=== PATIENT | male | born 1935 | race Caucasian/White ===

== ENCOUNTER 2019-01-20 18:24 | Inpatient (IN) | payer OTHER, MEDICARE | END 2019-02-06 21:20 | disposition home health service (06) | LOC: DOU 23:02 → TELE-WESTW 01-30 11:55 → OVERFLOW 01-21 16:15 → DOU IN ICU 01-22 19:44 → ER 18:24 | PROC: B2111ZZ Fluoroscopy of Multiple Coronary Arteries using Low Osmolar Contrast (ICD-10-PCS; principal; ~2019-01-20) | PROC: B2151ZZ Fluoroscopy of Left Heart using Low Osmolar Contrast (ICD-10-PCS; ~2019-01-20) | PROC: 02H63JZ Insertion of Pacemaker Lead into Right Atrium, Percutaneous Approach (ICD-10-PCS; ~2019-01-20) | PROC: 0JH606Z Insertion of Pacemaker, Dual Chamber into Chest Subcutaneous Tissue and Fascia, Open Approach (ICD-10-PCS; ~2019-01-20) | DX: A41.9 Sepsis, unspecified organism (principal); J96.00 Acute respiratory failure, unspecified whether with hypoxia or hypercapnia; N17.0 Acute kidney failure with tubular necrosis; J18.9 Pneumonia, unspecified organism; I50.41 Acute combined systolic (congestive) and diastolic (congestive) heart failure; J18.1 Lobar pneumonia, unspecified organism; J44.0 Chronic obstructive pulmonary disease with (acute) lower respiratory infection; I13.0 Hypertensive heart and chronic kidney disease with heart failure and stage 1 through stage 4 chronic kidney disease, or unspecified chronic kidney disease; E44.0 Moderate protein-calorie malnutrition; I12.9 Hypertensive chronic kidney disease with stage 1 through stage 4 chronic kidney disease, or unspecified chronic kidney disease; R00.1 Bradycardia, unspecified; N18.3 Chronic kidney disease, stage 3 (moderate); R79.1 Abnormal coagulation profile; E66.01 Morbid (severe) obesity due to excess calories; Z68.32 Body mass index [BMI] 32.0-32.9, adult; E11.22 Type 2 diabetes mellitus with diabetic chronic kidney disease; E11.65 Type 2 diabetes mellitus with hyperglycemia; E66.9 Obesity, unspecified; E78.5 Hyperlipidemia, unspecified; E83.119 Hemochromatosis, unspecified; E87.6 Hypokalemia; F12.90 Cannabis use, unspecified, uncomplicated; I25.10 Atherosclerotic heart disease of native coronary artery without angina pectoris; I48.91 Unspecified atrial fibrillation; K40.90 Unilateral inguinal hernia, without obstruction or gangrene, not specified as recurrent; K57.90 Diverticulosis of intestine, part unspecified, without perforation or abscess without bleeding; N40.0 Benign prostatic hyperplasia without lower urinary tract symptoms; N28.1 Cyst of kidney, acquired ==

== ENCOUNTER 2019-07-21 07:30 | Emergency (ER) | payer OTHER ==
[~2019-07-21] VITALS: Ht 177.8 cm; Wt 113.4 kg
[~2019-07-21 07:30] MED LIST: AMIO200T33; ATOR40TA52; FIN5T; TAMS1CAP25
[2019-07-21 08:30] LABS: Hemoglobin 17.1 g/dL (13.5-17.5); Mean Corpuscular Hemoglobin 34.1 pg (28.0-32.0); Red Blood Cells 5.02 10^6/uL (4.5-5.90)
[2019-07-21 08:32] LABS: Hematocrit 49.3 % (41.0-53.0); Mean Corpuscular Hgb Conc. 34.7 g/dL (32.0-36.0); Mean Corpuscular Volume 98.2 fL (80.0-100.0); Platelet Count (auto) 199 10^3/uL (140-450); Red Cell Distribution Width 14.8 % (11.8-14.3); White Blood Cell 15.6 10^3/uL (4.4-10.8)
[2019-07-21 08:37] LABS: Albumin 3.2 g/dL (3.4-5.0); BUN/Creatinine Ratio 14.1; Calcium 8.6 mg/dL (8.5-10.1); Potassium 3.8 mmol/L (3.5-5.1)
[2019-07-21 08:42] LABS: Bilirubin, Total 0.5 mg/dL (0.2-1.0); Total Protein 7.7 g/dL (6.4-8.2)
[2019-07-21 08:44] LABS: Basophils % (manual) 0 (0.0-2.0); Blast Cells 0; Metamyelocytes % 0; Myelocytes % 0; Promyelocytes % 0; Reactive Lymphocytes 0
[2019-07-21 09:10] LABS: Band Neutrophils % (manual) 3; Eosinophils % (manual) 4 (0-7); Lymphocytes % (manual) 16 (10.0-50.0); Monocytes % (manual) 4 (0-12)
[2019-07-21] MEDS ORDERED: KETOROLAC TROMETH 30 MG/ML 1ML VIAL IV ONE (09:15)
[2019-07-21 10:27] VITALS: BP 152/83
[2019-07-21] MEDS ORDERED: SPIRONOLACTONE 25 MG TAB PO ONE (10:45)
[2019-07-21] MEDS ORDERED: FUROSEMIDE 20 MG TAB PO ONE (10:45)
== END 2019-07-21 13:25 | disposition home or self-care (01) ==
LOC: EDBD 07:30 → ER 07:30
DX: I13.0 Hypertensive heart and chronic kidney disease with heart failure and stage 1 through stage 4 chronic kidney disease, or unspecified chronic kidney disease (principal); I50.9 Heart failure, unspecified; N18.9 Chronic kidney disease, unspecified; J44.9 Chronic obstructive pulmonary disease, unspecified; E78.5 Hyperlipidemia, unspecified; Z95.0 Presence of cardiac pacemaker
CPT/HCPCS: 36415; 71046; 80053; 83735; 84484; 85007; 85027; 93005; 94761; 96374; 99284; J1885

== ENCOUNTER 2020-05-31 10:00 | Emergency (ER) | payer OTHER ==
[~2020-05-31] VITALS: Ht 180.3 cm; Wt 102.1 kg
[2020-05-31 10:39] LABS: Basophils # (auto) 0 10 ^3/uL (0-0.2); Basophils % (auto) 0.4 % (0.0-2.0); Eosinophils # (auto) 0.3 10 ^3/uL (0-0.8); Eosinophils % (auto) 3.1 % (0.0-7.0); Hematocrit 43.3 % (41.0-53.0); Hemoglobin 14.7 g/dL (13.5-17.5); Lymphocytes # (auto) 1.8 10 ^3/uL (0.4-5.4); Lymphocytes % (auto) 17.7 % (10.0-50.0); Mean Corpuscular Hemoglobin 33.8 pg (28.0-32.0); Mean Corpuscular Volume 99.2 fL (80.0-100.0); Monocytes # (auto) 0.9 10 ^3/uL (0-1.3); Monocytes % (auto) 8.8 % (0.0-12.0); Neutrophils # (auto) 7.3 10 ^3/uL (1.6-8.6); Platelet Count (auto) 250 10^3/uL (140-450); Red Blood Cells 4.37 10^6/uL (4.5-5.90); Red Cell Distribution Width 13.1 % (11.8-14.3); White Blood Cell 10.4 10^3/uL (4.4-10.8)
[2020-05-31 11:01] LABS: Albumin 3.4 g/dL (3.4-5.0); Anion Gap 7 (5-15); Blood Urea Nitrogen 21 mg/dL (7-18); Calcium 8.5 mg/dL (8.5-10.1); Carbon Dioxide 25 mmol/L (21-32); Chloride 107 mmol/L (98-107); Glucose 112 mg/dL (74-106); Potassium 3.5 mmol/L (3.5-5.1); Sodium 139 mmol/L (136-145)
[2020-05-31 11:07] LABS: Alanine Aminotransferase 42 U/L (16-61); Alkaline Phosphatase 94 U/L (45-117); Aspartate Aminotransferase 24 U/L (15-37); BUN/Creatinine Ratio 14.6; Bilirubin, Total 0.5 mg/dL (0.2-1.0); GFR African American 60 mL/min; GFR Non-African American 49 mL/min; Total Protein 7.3 g/dL (6.4-8.2)
[2020-05-31 11:30] VITALS: BP 142/79
== END 2020-05-31 13:08 | disposition home or self-care (01) ==
LOC: ER 10:00
DX: S20.212A Contusion of left front wall of thorax, initial encounter (principal); R42 Dizziness and giddiness; F12.10 Cannabis abuse, uncomplicated; M79.89 Other specified soft tissue disorders; I48.91 Unspecified atrial fibrillation; I11.0 Hypertensive heart disease with heart failure; I50.9 Heart failure, unspecified; E78.5 Hyperlipidemia, unspecified; Z90.89 Acquired absence of other organs; Z95.0 Presence of cardiac pacemaker; W18.30XA Fall on same level, unspecified, initial encounter; Y93.89 Activity, other specified; Y99.8 Other external cause status; Y92.89 Other specified places as the place of occurrence of the external cause
CPT/HCPCS: 36415; 70450; 71046; 80053; 84484; 85025; 93005

== ENCOUNTER 2021-01-15 15:33 | Emergency (ER) | payer OTHER ==
[~2021-01-15] VITALS: Ht 175.3 cm; Wt 108.9 kg
[2021-01-15 15:59] VITALS: BP 142/92
[2021-01-15] MEDS ORDERED: LIDOCAINE 1% HCL (LOCAL ANESTH.) INJ 20ML MDV IJ ONE (17:30)
[2021-01-15] MEDS ORDERED: ACETAMINOPHEN 500 MG TAB PO ONE (18:00)
[2021-01-15] MEDS ORDERED: TETANUS-DIPTH-ACEL PERTUSSIS 0.5ML SYR Tdap IM ONE (18:30)
== END 2021-01-15 23:57 | disposition home or self-care (01) ==
LOC: EDBD 15:33 → ER 15:33
DX: S92.511A Displaced fracture of proximal phalanx of right lesser toe(s), initial encounter for closed fracture (principal); S91.119A Laceration without foreign body of unspecified toe without damage to nail, initial encounter; I11.0 Hypertensive heart disease with heart failure; I50.9 Heart failure, unspecified; J44.9 Chronic obstructive pulmonary disease, unspecified; E78.5 Hyperlipidemia, unspecified; W18.09XA Striking against other object with subsequent fall, initial encounter; Y93.89 Activity, other specified; Y92.89 Other specified places as the place of occurrence of the external cause; Y99.8 Other external cause status
CPT/HCPCS: 12001; 73630; 90471; 90715; 99283; J2001

== ENCOUNTER 2021-05-30 18:35 | Emergency (ER) | payer OTHER ==
[~2021-05-30] VITALS: Ht 177.8 cm; Wt 102.1 kg
[2021-05-30 19:19] LABS: Basophils # (auto) 0 10 ^3/uL (0-0.2); Basophils % (auto) 0.4 % (0.0-2.0); Eosinophils # (auto) 0.4 10 ^3/uL (0-0.8); Hematocrit 43.7 % (41.0-53.0); Hemoglobin 15.2 g/dL (13.5-17.5); Lymphocytes % (auto) 19.1 % (10.0-50.0); Mean Corpuscular Hemoglobin 33.3 pg (28.0-32.0); Mean Corpuscular Hgb Conc. 34.7 g/dL (32.0-36.0); Monocytes # (auto) 0.7 10 ^3/uL (0-1.3); Monocytes % (auto) 6.7 % (0.0-12.0); Neutrophils # (auto) 7.2 10 ^3/uL (1.6-8.6); Neutrophils % (auto) 69.8 % (37.0-80.0); Nucleated Red Blood Cells % 0.1 %; Red Blood Cells 4.55 10^6/uL (4.5-5.90); Red Cell Distribution Width 13.6 % (11.8-14.3); White Blood Cell 10.3 10^3/uL (4.4-10.8)
[2021-05-30 19:38] LABS: Albumin 2.6 g/dL (3.4-5.0); BUN/Creatinine Ratio 15.6; Calcium 8.4 mg/dL (8.5-10.1); Potassium 3.5 mmol/L (3.5-5.1)
[2021-05-30 19:45] LABS: Bilirubin, Total 0.4 mg/dL (0.2-1.0)
[2021-05-31 00:48] VITALS: BP 172/102
== END 2021-05-31 01:26 | disposition home or self-care (01) ==
LOC: ER 18:37
DX: S82.62XA Displaced fracture of lateral malleolus of left fibula, initial encounter for closed fracture (principal); S92.492A Other fracture of left great toe, initial encounter for closed fracture; S92.592A Other fracture of left lesser toe(s), initial encounter for closed fracture; R42 Dizziness and giddiness; I11.0 Hypertensive heart disease with heart failure; I50.9 Heart failure, unspecified; I48.91 Unspecified atrial fibrillation; J44.9 Chronic obstructive pulmonary disease, unspecified; E78.5 Hyperlipidemia, unspecified; Z90.49 Acquired absence of other specified parts of digestive tract; Z95.0 Presence of cardiac pacemaker; Z90.89 Acquired absence of other organs; Z79.899 Other long term (current) drug therapy; W01.0XXA Fall on same level from slipping, tripping and stumbling without subsequent striking against object, initial encounter; Y93.89 Activity, other specified; Y92.89 Other specified places as the place of occurrence of the external cause; Y99.8 Other external cause status
CPT/HCPCS: 29515; 36415; 73610; 73630; 80053; 85025

== ENCOUNTER 2021-08-09 09:57 | Inpatient (IN) | payer OTHER ==
[~2021-08-09] VITALS: Ht 177.8 cm; Wt 100.7 kg
[2021-08-09 15:04] LABS: Albumin 2.5 g/dL (3.4-5.0); Basophils # (auto) 0 10 ^3/uL (0-0.2); Basophils % (auto) 0.2 % (0.0-2.0); Eosinophils # (auto) 0.1 10 ^3/uL (0-0.8); Eosinophils % (auto) 1.4 % (0.0-7.0); Hematocrit 44.7 % (41.0-53.0); Hemoglobin 14.9 g/dL (13.5-17.5); Lymphocytes # (auto) 1.4 10 ^3/uL (0.4-5.4); Lymphocytes % (auto) 13.5 % (10.0-50.0); Mean Corpuscular Hemoglobin 32.7 pg (28.0-32.0); Mean Corpuscular Hgb Conc. 33.4 g/dL (32.0-36.0); Monocytes # (auto) 0.7 10 ^3/uL (0-1.3); Neutrophils # (auto) 7.9 10 ^3/uL (1.6-8.6); Neutrophils % (auto) 77.9 % (37.0-80.0); Nucleated Red Blood Cells % 0.1 %; Potassium 3.8 mmol/L (3.5-5.1); Red Blood Cells 4.56 10^6/uL (4.5-5.90); Red Cell Distribution Width 13.8 % (11.8-14.3); White Blood Cell 10.2 10^3/uL (4.4-10.8)
[2021-08-09 15:11] LABS: BUN/Creatinine Ratio 16.1; Bilirubin, Total 0.8 mg/dL (0.2-1.0); INR 1.25 (0.9-1.15); Partial Thromboplastin Time 30.4 sec (23.6-33.0); Total Protein 6.7 g/dL (6.4-8.2)
[2021-08-09] MEDS ORDERED: LABETALOL HCL 5 MG/ML 4ML SYRINGE IV ONE (16:15)
[2021-08-09 20:38] LABS: Urine Amorphous Crystal FEW /hpf (None Seen); Urine Bacteria FEW /hpf (None Seen); Urine Blood Negative /uL (Negative); Urine Specific Gravity 1.012 (1.001-1.035); Urine WBC <1 /hpf (0 - 3)
[2021-08-09] MEDS ORDERED: MORPHINE SULFATE INJECTION 2 MG/ML SYRG IV PRN (20:45)
[2021-08-09] MEDS ORDERED: ACETAMINOPHEN 500 MG TAB PO PRN (20:45)
[2021-08-09] MEDS ORDERED: DOCUSATE CALCIUM 240 MG CAP PO PRN (20:45)
[2021-08-09] MEDS ORDERED: LORazepam 0.5 MG TAB PO PRN (20:45)
[2021-08-09] MEDS ORDERED: ONDANSETRON HCL 4 MG/2 ML VIAL IV PRN (20:45)
[2021-08-09] MEDS ORDERED: FUROSEMIDE 40 MG/4 ML VIAL IV ONE (20:45)
[2021-08-09] MEDS ORDERED: NITROGLYCERIN 0.4 MG SL TAB SL PRN (20:45)
[2021-08-10] MEDS: LABETALOL HCL 5 MG/ML 4ML SYRINGE IV PRN ×3 (00:53→21:54)
[2021-08-10] MEDS: MORPHINE SULFATE INJECTION 2 MG/ML SYRG IV PRN ×2 (00:56→20:13)
[2021-08-10 06:18] LABS: Basophils # (auto) 0 10 ^3/uL (0-0.2); Basophils % (auto) 0.3 % (0.0-2.0); Eosinophils # (auto) 0.1 10 ^3/uL (0-0.8); Hematocrit 44.8 % (41.0-53.0); Lymphocytes # (auto) 1.1 10 ^3/uL (0.4-5.4); Lymphocytes % (auto) 9.7 % (10.0-50.0); Mean Corpuscular Hgb Conc. 33.5 g/dL (32.0-36.0); Mean Corpuscular Volume 98.6 fL (80.0-100.0); Monocytes # (auto) 0.9 10 ^3/uL (0-1.3); Monocytes % (auto) 8.3 % (0.0-12.0); Neutrophils # (auto) 9.1 10 ^3/uL (1.6-8.6); Neutrophils % (auto) 80.7 % (37.0-80.0); Red Blood Cells 4.54 10^6/uL (4.5-5.90); Red Cell Distribution Width 14.2 % (11.8-14.3); White Blood Cell 11.3 10^3/uL (4.4-10.8)
[2021-08-10 06:33] LABS: Albumin 2.4 g/dL (3.4-5.0); Calcium 8.2 mg/dL (8.5-10.1); Potassium 3.2 mmol/L (3.5-5.1)
[2021-08-10 06:37] LABS: BUN/Creatinine Ratio 14.7; Bilirubin, Total 0.8 mg/dL (0.2-1.0); Total Protein 6.9 g/dL (6.4-8.2)
[2021-08-10] MEDS: AMIODARONE HCL 200 MG TAB PO SCH (10:11)
[2021-08-10] MEDS: cefTRIAXone 1GM/50ML D5W 50 ML IV SCH (10:11)
[2021-08-10] MEDS: PANTOPRAZOLE 40 MG TAB PO SCH (10:11)
[2021-08-10] MEDS: ENOXAPARIN SOD 40 MG/0.4 ML SYRINGE SC SCH (10:12)
[2021-08-10] MEDS ORDERED: POTASSIUM EFFERVESENT TAB 25 MEQ PO ONE (15:15)
[2021-08-10] MEDS ORDERED: DOXY-338 PO (16:23)
[2021-08-10] MEDS ORDERED: POTA-180 PO (16:23)
[2021-08-10] MEDS ORDERED: ALBUAER3 IN (16:23)
[2021-08-10] MEDS ORDERED: FURO1TAB31 PO (16:23)
[2021-08-10] MEDS: FUROSEMIDE 40 MG/4 ML VIAL IV SCH (20:14)
[2021-08-10 21:41] VITALS: BP 158/114
[2021-08-10] MEDS ORDERED: CARV6.2551 PO (22:08)
[2021-08-10] MEDS ORDERED: LISI-275 PO (22:08)
[2021-08-10] MEDS ORDERED: ATOR40TA52 PO (22:08)
[2021-08-10] MEDS ORDERED: APIX5TAB PO (22:08)
[2021-08-10] MEDS ORDERED: AMIO200T4 PO (22:08)
[2021-08-10] MEDS ORDERED: methylPREDNISolone SOD SUCC 125 MG/2 ML VL IV ONE (22:15)
[2021-08-11] VITALS (8 sets, daily range): BP systolic 131–167; BP diastolic 73–107
[2021-08-11] MEDS: CARVEDILOL 3.125 MG TAB PO SCH ×3 (04:07→22:05)
[2021-08-11] MEDS: IPRATROPIUM BROM 0.5 MG/2.5ML INH SOL NEB SCH ×3 (08:49→18:29)
[2021-08-11 08:55] LABS: Basophils # (auto) 0 10 ^3/uL (0-0.2); Basophils % (auto) 0.3 % (0.0-2.0); Eosinophils # (auto) 0 10 ^3/uL (0-0.8); Eosinophils % (auto) 0.1 % (0.0-7.0); Hematocrit 42.4 % (41.0-53.0); Hemoglobin 14.3 g/dL (13.5-17.5); Lymphocytes # (auto) 0.3 10 ^3/uL (0.4-5.4); Lymphocytes % (auto) 2.8 % (10.0-50.0); Mean Corpuscular Hemoglobin 33.4 pg (28.0-32.0); Mean Corpuscular Hgb Conc. 33.6 g/dL (32.0-36.0); Mean Corpuscular Volume 99.3 fL (80.0-100.0); Monocytes # (auto) 0.3 10 ^3/uL (0-1.3); Monocytes % (auto) 2.2 % (0.0-12.0); Neutrophils # (auto) 10.8 10 ^3/uL (1.6-8.6); Neutrophils % (auto) 94.6 % (37.0-80.0); Nucleated Red Blood Cells % 0.1 %; Red Blood Cells 4.27 10^6/uL (4.5-5.90); Red Cell Distribution Width 13.8 % (11.8-14.3); White Blood Cell 11.4 10^3/uL (4.4-10.8)
[2021-08-11 08:59] LABS: Potassium 3.8 mmol/L (3.5-5.1)
[2021-08-11] MEDS: cefTRIAXone 1GM/50ML D5W 50 ML IV SCH (09:00)
[2021-08-11 09:06] LABS: Albumin 2.6 g/dL (3.4-5.0); BUN/Creatinine Ratio 16.4; Bilirubin, Total 0.9 mg/dL (0.2-1.0); Total Protein 6.2 g/dL (6.4-8.2)
[2021-08-11] MEDS: ENOXAPARIN SOD 40 MG/0.4 ML SYRINGE SC SCH (10:00)
[2021-08-11] MEDS: PANTOPRAZOLE 40 MG TAB PO SCH (10:00)
[2021-08-11] MEDS: methylPREDNISolone SOD SUCC 40 MG/ML VL IV SCH ×2 (10:00→22:06)
[2021-08-11] MEDS: AMIODARONE HCL 200 MG TAB PO SCH (10:00)
[2021-08-11] MEDS: FUROSEMIDE 40 MG/4 ML VIAL IV SCH (10:00)
[2021-08-12] MEDS: IPRATROPIUM BROM 0.5 MG/2.5ML INH SOL NEB SCH ×2 (00:48→05:59)
[2021-08-12 05:00] VITALS: BP 152/93
[2021-08-12] MEDS: cefTRIAXone 1GM/50ML D5W 50 ML IV SCH (09:00)
[2021-08-12] MEDS: ENOXAPARIN SOD 40 MG/0.4 ML SYRINGE SC SCH (10:00)
[2021-08-12] MEDS: PANTOPRAZOLE 40 MG TAB PO SCH (10:00)
[2021-08-12] MEDS: AMIODARONE HCL 200 MG TAB PO SCH (10:00)
[2021-08-12] MEDS: FUROSEMIDE 40 MG/4 ML VIAL IV SCH (10:00)
[2021-08-12] MEDS: methylPREDNISolone SOD SUCC 40 MG/ML VL IV SCH (10:00)
[2021-08-12] MEDS: CARVEDILOL 3.125 MG TAB PO SCH (10:00)
== END 2021-08-12 11:45 | disposition home or self-care (01) | DRG 291 ==
LOC: EDBD 09:57 → ER 09:57 → TELE 20:36 → TELE-CENTR 08-10 20:20
PROVIDERS: ADMIT Family Medicine; ATTEND Internal Medicine
DX: I13.0 Hypertensive heart and chronic kidney disease with heart failure and stage 1 through stage 4 chronic kidney disease, or unspecified chronic kidney disease (principal); J18.9 Pneumonia, unspecified organism; I50.33 Acute on chronic diastolic (congestive) heart failure; J96.11 Chronic respiratory failure with hypoxia; I16.0 Hypertensive urgency; E87.6 Hypokalemia; I70.0 Atherosclerosis of aorta; J44.9 Chronic obstructive pulmonary disease, unspecified; I48.0 Paroxysmal atrial fibrillation; Z20.822 Contact with and (suspected) exposure to COVID-19; N18.30 Chronic kidney disease, stage 3 unspecified; E78.5 Hyperlipidemia, unspecified; N40.0 Benign prostatic hyperplasia without lower urinary tract symptoms; Z95.0 Presence of cardiac pacemaker; Z99.81 Dependence on supplemental oxygen; Z90.49 Acquired absence of other specified parts of digestive tract
CPT/HCPCS: 36415; 36600; 71045; 71250; 73030; 80053; 81001; 82805; 83880; 84443; 84484; 85025; 85610; 85730; 87040; 87426; 93005; 93306; 94640; 96372; 96374; 96375; 97163; 99291; G0378; J0696; J3490

== ENCOUNTER 2021-10-07 12:58 | Inpatient (IN) | payer OTHER ==
[~2021-10-07] VITALS: Ht 185.4 cm; Wt 105.0 kg
[~2021-10-07 12:58] MED LIST changes: +ALBUAER3 IN; +AMIO200T4 PO; +APIX5TAB PO; +ATOR40TA52 PO; +CARV6.2551 PO; +DOXY-338 PO; +FURO1TAB31 PO; +LISI-275 PO; +POTA-180 PO
[2021-10-07] MEDS ORDERED: ROCURONIUM 10MG/ML 10ML VIAL IV ONE ×3 (13:20→16:15)
[2021-10-07] MEDS ORDERED: PROPOFOL 100 ML IV ONE (13:25)
[2021-10-07] MEDS ORDERED: ETOMIDATE (2MG/ML) 20ML VIAL IV ONE ×2 (13:26→13:45)
[2021-10-07] MEDS: PROPOFOL 100 ML IV SCH (13:30)
[2021-10-07] MEDS ORDERED: SUCCINYLCHOLINE CHLORIDE 20 MG/ML 10ML VIAL IV ONE (13:45)
[2021-10-07] MEDS ORDERED: SODIUM CHLORIDE 0.9% 3,150 ML IV ONE (14:45)
[2021-10-07 15:20] LABS: Basophils # (auto) 0 10 ^3/uL (0-0.2); Basophils % (auto) 0.3 % (0.0-2.0); Eosinophils # (auto) 0.1 10 ^3/uL (0-0.8); Eosinophils % (auto) 0.9 % (0.0-7.0); Hematocrit 48.2 % (41.0-53.0); Hemoglobin 15.8 g/dL (13.5-17.5); Lymphocytes # (auto) 0.9 10 ^3/uL (0.4-5.4); Lymphocytes % (auto) 5.6 % (10.0-50.0); Mean Corpuscular Hemoglobin 32.2 pg (28.0-32.0); Mean Corpuscular Hgb Conc. 32.8 g/dL (32.0-36.0); Mean Corpuscular Volume 98.2 fL (80.0-100.0); Monocytes # (auto) 0.6 10 ^3/uL (0-1.3); Monocytes % (auto) 3.8 % (0.0-12.0); Neutrophils # (auto) 14.7 10 ^3/uL (1.6-8.6); Neutrophils % (auto) 89.4 % (37.0-80.0); Nucleated Red Blood Cells % 0.1 %; Red Blood Cells 4.91 10^6/uL (4.5-5.90); White Blood Cell 16.4 10^3/uL (4.4-10.8)
[2021-10-07 15:35] LABS: Albumin 2.8 g/dL (3.4-5.0); BUN/Creatinine Ratio 13.5; Magnesium 2.7 mg/dL (1.6-2.6); Potassium 3.7 mmol/L (3.5-5.1)
[2021-10-07 15:37] LABS: Lactic Acid w/Reflex 2.5 mmol/L (0.4-2.0)
[2021-10-07 15:40] LABS: Bilirubin, Total 0.9 mg/dL (0.2-1.0); Total Protein 7.2 g/dL (6.4-8.2)
[2021-10-07 15:41] LABS: CRP High Sensitivity 0.91 mg/dL (< 0.3)
[2021-10-07 15:42] LABS: INR 1.26 (0.9-1.15); Partial Thromboplastin Time 28.6 sec (23.6-33.0)
[2021-10-07] MEDS ORDERED: SODIUM CHLORIDE 0.9% 1,000 ML IV ONE (17:00)
[2021-10-07] MEDS ORDERED: AZITHROMYCIN 500MG/ 250ML 250 ML IV ONE (17:00)
[2021-10-07] MEDS ORDERED: cefTRIAXone 1GM/50ML D5W 50 ML IV ONE (17:00)
[2021-10-07 17:45] VITALS: BP 158/106
[2021-10-07 18:16] VITALS: BP 136/97
[2021-10-07] MEDS: MIDAZOLAM DRIP 50 mg/50mL 50 ML IV SCH (18:29)
[2021-10-07] MEDS ORDERED: NITROGLYCERIN 0.4 MG SL TAB SL PRN (18:45)
[2021-10-07] MEDS ORDERED: MORPHINE SULFATE INJECTION 2 MG/ML SYRG IV PRN (18:45)
[2021-10-07] MEDS ORDERED: OSELTAMIVIR 75 MG CAP PO ONE (19:15)
[2021-10-07] MEDS ORDERED: DEXTROSE (50%) 50ML SYRG IV PRN (19:15)
[2021-10-07] MEDS ORDERED: ALBUTEROL SULF 2.5 MG/0.5ML(0.5%) NEB SOLN NEB PRN (19:15)
[2021-10-07] MEDS ORDERED: NOREPINEPHRINE 8 MG/250ML KIT 250 ML IV ONE (19:28)
[2021-10-07] MEDS: APIXABAN 5 MG TAB NG SCH ×2 (22:00→22:08)
[2021-10-07] MEDS: FUROSEMIDE 40 MG/4 ML VIAL IV SCH (22:08)
[2021-10-07] MEDS: NOREPINEPHRINE 8 MG/250ML KIT 250 ML IV SCH (22:09)
[2021-10-07 22:16] VITALS: BP 161/104
[2021-10-07 23:43] LABS: Urine Bacteria FEW /hpf (None Seen); Urine Blood 3+ /uL (Negative); Urine Hyaline Cast MANY /lpf (0 - 2); Urine WBC 317 /hpf (0 - 3)
[2021-10-08 00:06] LABS: Urine Specific Gravity 1.015 (1.001-1.035)
[2021-10-08 02:34] VITALS: BP 136/89
[2021-10-08] MEDS: InsuLIN REG 1unit/0.01ml Soln (100units/ml) SC SCH ×4 (06:00→18:39)
[2021-10-08] MEDS: ALBUTEROL SULF 2.5 MG/0.5ML(0.5%) NEB SOLN NEB SCH ×4 (06:05→19:14)
[2021-10-08] MEDS: IPRATROPIUM BROM 0.5 MG/2.5ML INH SOL NEB SCH ×4 (06:06→19:14)
[2021-10-08 06:08] VITALS: BP 127/68
[2021-10-08] MEDS: MIDAZOLAM DRIP 50 mg/50mL 50 ML IV SCH ×2 (06:10→13:50)
[2021-10-08] MEDS: ACCU-CHEK COMFORT CURVE STRIP VI SCH ×4 (06:10→18:39)
[2021-10-08 07:15] LABS: Basophils # (auto) 0 10 ^3/uL (0-0.2); Basophils % (auto) 0.2 % (0.0-2.0); Eosinophils # (auto) 0.1 10 ^3/uL (0-0.8); Eosinophils % (auto) 0.3 % (0.0-7.0); Hematocrit 42.9 % (41.0-53.0); Hemoglobin 14.4 g/dL (13.5-17.5); Lymphocytes # (auto) 1.5 10 ^3/uL (0.4-5.4); Lymphocytes % (auto) 7.9 % (10.0-50.0); Mean Corpuscular Hemoglobin 31.9 pg (28.0-32.0); Mean Corpuscular Hgb Conc. 33.4 g/dL (32.0-36.0); Mean Corpuscular Volume 95.4 fL (80.0-100.0); Monocytes # (auto) 1.1 10 ^3/uL (0-1.3); Neutrophils # (auto) 15.8 10 ^3/uL (1.6-8.6); Neutrophils % (auto) 85.6 % (37.0-80.0); Nucleated Red Blood Cells % 0.2 %; Red Cell Distribution Width 15.1 % (11.8-14.3); White Blood Cell 18.4 10^3/uL (4.4-10.8)
[2021-10-08 07:30] LABS: Albumin 2.3 g/dL (3.4-5.0); Calcium 7.7 mg/dL (8.5-10.1); Potassium 3.5 mmol/L (3.5-5.1)
[2021-10-08 07:35] LABS: BUN/Creatinine Ratio 16.5; Bilirubin, Total 0.7 mg/dL (0.2-1.0); Total Protein 5.5 g/dL (6.4-8.2)
[2021-10-08] MEDS: cefTRIAXone 1GM/50ML D5W 50 ML IV SCH (09:27)
[2021-10-08] MEDS: CARVEDILOL 3.125 MG TAB PO SCH ×2 (10:00→22:00)
[2021-10-08] MEDS: NITROGLYCERIN 0.2MG/HR TOPICAL PATCH TD SCH (10:00)
[2021-10-08] MEDS ORDERED: FINASTERIDE 5 MG TAB NG SCH (10:00)
[2021-10-08] MEDS ORDERED: AMIODARONE HCL 200 MG TAB NG SCH (10:00)
[2021-10-08] MEDS ORDERED: LISINOPRIL 5 MG TAB NG SCH (10:00)
[2021-10-08] MEDS: OSELTAMIVIR 30 MG CAP PO SCH ×2 (10:27→22:00)
[2021-10-08] MEDS: ASPirin 81 mg TAB NG SCH (10:27)
[2021-10-08] MEDS: POTASSIUM CHL 20 Meq TABLET PO SCH (10:27)
[2021-10-08] MEDS: FUROSEMIDE 40 MG/4 ML VIAL IV SCH ×2 (10:27→22:00)
[2021-10-08] MEDS: APIXABAN 5 MG TAB NG SCH ×2 (10:27→22:00)
[2021-10-08 10:30] VITALS: BP 103/64
[2021-10-08] MEDS: AZITHROMYCIN 500MG/ 250ML 250 ML IV SCH (10:47)
[2021-10-08] MEDS: PROPOFOL 100 ML IV SCH (13:49)
[2021-10-08 18:27] VITALS: BP 132/75
[2021-10-08] MEDS: NOREPINEPHRINE 8 MG/250ML KIT 250 ML IV SCH (21:52)
[2021-10-08 21:55] VITALS: BP 129/71
[2021-10-08] MEDS: AMIODARONE HCL 200 MG TAB NG SCH (22:00)
[2021-10-08] MEDS: ATORVASTATIN 20 MG TAB PO SCH (22:00)
[2021-10-09] MEDS: MIDAZOLAM DRIP 50 mg/50mL 50 ML IV SCH ×3 (00:17→20:15)
[2021-10-09] MEDS: ACCU-CHEK COMFORT CURVE STRIP VI SCH ×4 (00:20→18:22)
[2021-10-09 02:43] VITALS: BP 126/68
[2021-10-09] MEDS: InsuLIN REG 1unit/0.01ml Soln (100units/ml) SC SCH ×4 (06:00→18:00)
[2021-10-09 07:10] VITALS: BP 123/70
[2021-10-09] MEDS: cefTRIAXone 1GM/50ML D5W 50 ML IV SCH (09:00)
[2021-10-09] MEDS: NITROGLYCERIN 0.2MG/HR TOPICAL PATCH TD SCH (09:25)
[2021-10-09 09:34] VITALS: BP 106/51
[2021-10-09] MEDS: ALBUTEROL SULF 2.5 MG/0.5ML(0.5%) NEB SOLN NEB SCH ×5 (09:56→23:01)
[2021-10-09] MEDS: IPRATROPIUM BROM 0.5 MG/2.5ML INH SOL NEB SCH ×5 (09:56→23:01)
[2021-10-09] MEDS: POTASSIUM CHL 20 Meq TABLET PO SCH (10:00)
[2021-10-09] MEDS: FUROSEMIDE 40 MG/4 ML VIAL IV SCH ×2 (10:00→22:00)
[2021-10-09] MEDS: PANTOPRAZOLE 40 MG/10 ML VIAL INJ IV SCH (10:00)
[2021-10-09] MEDS: OSELTAMIVIR 30 MG CAP PO SCH ×2 (10:00→23:00)
[2021-10-09] MEDS: AMIODARONE HCL 200 MG TAB NG SCH ×2 (10:00→22:00)
[2021-10-09] MEDS: AZITHROMYCIN 500MG/ 250ML 250 ML IV SCH (10:00)
[2021-10-09] MEDS: APIXABAN 5 MG TAB NG SCH ×2 (10:00→23:00)
[2021-10-09] MEDS: ASPirin 81 mg TAB NG SCH (10:00)
[2021-10-09] MEDS: CARVEDILOL 3.125 MG TAB PO SCH ×2 (10:00→23:00)
[2021-10-09 11:53] LABS: Basophils # (auto) 0 10 ^3/uL (0-0.2); Basophils % (auto) 0.3 % (0.0-2.0); Eosinophils # (auto) 0.1 10 ^3/uL (0-0.8); Eosinophils % (auto) 0.3 % (0.0-7.0); Hematocrit 40.6 % (41.0-53.0); Hemoglobin 13.6 g/dL (13.5-17.5); Lymphocytes # (auto) 1.5 10 ^3/uL (0.4-5.4); Lymphocytes % (auto) 8.9 % (10.0-50.0); Mean Corpuscular Hgb Conc. 33.5 g/dL (32.0-36.0); Mean Corpuscular Volume 95.6 fL (80.0-100.0); Monocytes # (auto) 0.9 10 ^3/uL (0-1.3); Monocytes % (auto) 5.5 % (0.0-12.0); Neutrophils # (auto) 13.9 10 ^3/uL (1.6-8.6); Red Blood Cells 4.25 10^6/uL (4.5-5.90); Red Cell Distribution Width 15.4 % (11.8-14.3); White Blood Cell 16.3 10^3/uL (4.4-10.8)
[2021-10-09 12:19] LABS: Calcium 7.8 mg/dL (8.5-10.1); Potassium 3.3 mmol/L (3.5-5.1)
[2021-10-09 12:21] LABS: BUN/Creatinine Ratio 14.5
[2021-10-09] MEDS: PROPOFOL 100 ML IV SCH (13:52)
[2021-10-09 14:12] VITALS: BP 115/65
[2021-10-09] MEDS ORDERED: ACETAMINOPHEN 500 MG TAB PO ONE ×2 (15:00→15:01)
[2021-10-09 18:47] VITALS: BP 127/79
[2021-10-09] MEDS: ATORVASTATIN 20 MG TAB PO SCH (22:00)
[2021-10-09] MEDS: NOREPINEPHRINE 8 MG/250ML KIT 250 ML IV SCH (23:00)
[2021-10-09 23:01] VITALS: BP 119/60
[2021-10-10] MEDS: ACCU-CHEK COMFORT CURVE STRIP VI SCH ×5 (00:10→23:30)
[2021-10-10 02:20] VITALS: BP 106/53
[2021-10-10] MEDS: InsuLIN REG 1unit/0.01ml Soln (100units/ml) SC SCH ×5 (05:48→23:15)
[2021-10-10] MEDS: MIDAZOLAM DRIP 50 mg/50mL 50 ML IV SCH ×3 (06:15→23:30)
[2021-10-10 07:05] LABS: Basophils # (auto) 0.1 10 ^3/uL (0-0.2); Basophils % (auto) 0.5 % (0.0-2.0); Eosinophils # (auto) 0 10 ^3/uL (0-0.8); Eosinophils % (auto) 0.2 % (0.0-7.0); Hematocrit 43.3 % (41.0-53.0); Hemoglobin 14.3 g/dL (13.5-17.5); Lymphocytes # (auto) 0.9 10 ^3/uL (0.4-5.4); Lymphocytes % (auto) 6.8 % (10.0-50.0); Mean Corpuscular Hemoglobin 31.9 pg (28.0-32.0); Mean Corpuscular Volume 96.7 fL (80.0-100.0); Monocytes # (auto) 0.8 10 ^3/uL (0-1.3); Monocytes % (auto) 5.6 % (0.0-12.0); Neutrophils # (auto) 12.2 10 ^3/uL (1.6-8.6); Neutrophils % (auto) 86.9 % (37.0-80.0); Red Blood Cells 4.48 10^6/uL (4.5-5.90); Red Cell Distribution Width 15.4 % (11.8-14.3)
[2021-10-10 07:27] LABS: Calcium 8.5 mg/dL (8.5-10.1); Magnesium 2.6 mg/dL (1.6-2.6); Potassium 3.4 mmol/L (3.5-5.1)
[2021-10-10] MEDS: NITROGLYCERIN 0.2MG/HR TOPICAL PATCH TD SCH (09:31)
[2021-10-10] MEDS: cefTRIAXone 1GM/50ML D5W 50 ML IV SCH (09:45)
[2021-10-10] MEDS: CARVEDILOL 3.125 MG TAB PO SCH ×2 (10:36→23:29)
[2021-10-10] MEDS: ASPirin 81 mg TAB NG SCH (10:42)
[2021-10-10] MEDS: PANTOPRAZOLE 40 MG/10 ML VIAL INJ IV SCH (10:42)
[2021-10-10] MEDS: AMIODARONE HCL 200 MG TAB NG SCH ×2 (10:43→23:28)
[2021-10-10] MEDS: POTASSIUM CHL 20 Meq TABLET PO SCH (10:43)
[2021-10-10] MEDS: OSELTAMIVIR 30 MG CAP PO SCH ×2 (10:44→22:00)
[2021-10-10 10:51] VITALS: BP 104/39
[2021-10-10] MEDS: AZITHROMYCIN 500MG/ 250ML 250 ML IV SCH (10:54)
[2021-10-10] MEDS: APIXABAN 5 MG TAB NG SCH ×2 (10:54→23:29)
[2021-10-10] MEDS: IPRATROPIUM BROM 0.5 MG/2.5ML INH SOL NEB SCH ×3 (11:34→23:04)
[2021-10-10] MEDS: ALBUTEROL SULF 2.5 MG/0.5ML(0.5%) NEB SOLN NEB SCH ×4 (11:34→23:04)
[2021-10-10] MEDS: PROPOFOL 100 ML IV SCH (12:27)
[2021-10-10 13:59] VITALS: BP 103/59
[2021-10-10 18:07] VITALS: BP 111/60
[2021-10-10] MEDS: NOREPINEPHRINE 8 MG/250ML KIT 250 ML IV SCH (21:45)
[2021-10-10 22:21] VITALS: BP 126/63
[2021-10-10] MEDS: ATORVASTATIN 20 MG TAB PO SCH (23:29)
[2021-10-10 23:30] VITALS: BP 147/81
[2021-10-11] VITALS (29 sets, daily range): BP systolic 103–154; BP diastolic 55–89
[2021-10-11] MEDS: InsuLIN REG 1unit/0.01ml Soln (100units/ml) SC SCH ×3 (05:15→17:35)
[2021-10-11] MEDS: ACCU-CHEK COMFORT CURVE STRIP VI SCH ×3 (05:15→17:35)
[2021-10-11] MEDS: IPRATROPIUM BROM 0.5 MG/2.5ML INH SOL NEB SCH ×3 (06:19→18:42)
[2021-10-11] MEDS: ALBUTEROL SULF 2.5 MG/0.5ML(0.5%) NEB SOLN NEB SCH ×3 (06:19→18:42)
[2021-10-11] MEDS: cefTRIAXone 1GM/50ML D5W 50 ML IV SCH (09:02)
[2021-10-11] MEDS: CARVEDILOL 3.125 MG TAB PO SCH ×2 (10:00→22:44)
[2021-10-11] MEDS: NITROGLYCERIN 0.2MG/HR TOPICAL PATCH TD SCH (10:00)
[2021-10-11] MEDS: ASPirin 81 mg TAB NG SCH (10:00)
[2021-10-11] MEDS: OSELTAMIVIR 30 MG CAP PO SCH (10:00)
[2021-10-11] MEDS: APIXABAN 5 MG TAB NG SCH ×2 (10:00→19:24)
[2021-10-11] MEDS: AMIODARONE HCL 200 MG TAB NG SCH ×2 (10:19→22:43)
[2021-10-11] MEDS: PANTOPRAZOLE 40 MG/10 ML VIAL INJ IV SCH (10:19)
[2021-10-11] MEDS: AZITHROMYCIN 500MG/ 250ML 250 ML IV SCH (10:20)
[2021-10-11] MEDS: FUROSEMIDE 40 MG/4 ML VIAL IV SCH (10:20)
[2021-10-11] MEDS: POTASSIUM EFFERVESENT TAB 25 MEQ GT SCH (11:01)
[2021-10-11] MEDS: CALCIUM ACETATE 667 MG CAP NG SCH ×2 (11:01→18:00)
[2021-10-11] MEDS: MIDAZOLAM DRIP 50 mg/50mL 50 ML IV SCH ×2 (12:15→22:44)
[2021-10-11] MEDS: DOXYCYCLINE 100MG/250ML 250 ML IV SCH (13:30)
[2021-10-11] MEDS: PROPOFOL 100 ML IV SCH (13:45)
[2021-10-11 14:29] LABS: Hepatitis C Antibody Negative (Negative)
[2021-10-11] MEDS: NOREPINEPHRINE 8 MG/250ML KIT 250 ML IV SCH (21:45)
[2021-10-11] MEDS: ATORVASTATIN 20 MG TAB PO SCH (22:44)
[2021-10-12] VITALS (30 sets, daily range): BP systolic 90–154; BP diastolic 59–92
[2021-10-12] MEDS: ACCU-CHEK COMFORT CURVE STRIP VI SCH ×4 (00:10→17:38)
[2021-10-12] MEDS: DOXYCYCLINE 100MG/250ML 250 ML IV SCH ×2 (00:43→14:16)
[2021-10-12 03:26] LABS: Basophils # (auto) 0 10 ^3/uL (0-0.2); Basophils % (auto) 0.2 % (0.0-2.0); Eosinophils # (auto) 0.2 10 ^3/uL (0-0.8); Eosinophils % (auto) 1.5 % (0.0-7.0); Hematocrit 39.3 % (41.0-53.0); Hemoglobin 13.4 g/dL (13.5-17.5); Lymphocytes # (auto) 1.2 10 ^3/uL (0.4-5.4); Mean Corpuscular Hemoglobin 32.5 pg (28.0-32.0); Mean Corpuscular Hgb Conc. 34.1 g/dL (32.0-36.0); Mean Corpuscular Volume 95.2 fL (80.0-100.0); Monocytes # (auto) 0.7 10 ^3/uL (0-1.3); Monocytes % (auto) 6.6 % (0.0-12.0); Neutrophils # (auto) 8.1 10 ^3/uL (1.6-8.6); Neutrophils % (auto) 79.7 % (37.0-80.0); Nucleated Red Blood Cells % 0.1 %; Red Blood Cells 4.13 10^6/uL (4.5-5.90); Red Cell Distribution Width 14.9 % (11.8-14.3); White Blood Cell 10.2 10^3/uL (4.4-10.8)
[2021-10-12 03:57] LABS: BUN/Creatinine Ratio 21.8; Calcium 7.9 mg/dL (8.5-10.1); Magnesium 2.4 mg/dL (1.6-2.6); Potassium 3.2 mmol/L (3.5-5.1)
[2021-10-12] MEDS: CALCIUM ACETATE 667 MG CAP NG SCH ×3 (05:23→17:56)
[2021-10-12] MEDS: InsuLIN REG 1unit/0.01ml Soln (100units/ml) SC SCH ×4 (05:31→17:38)
[2021-10-12] MEDS: ALBUTEROL SULF 2.5 MG/0.5ML(0.5%) NEB SOLN NEB SCH ×3 (06:40→18:30)
[2021-10-12] MEDS: IPRATROPIUM BROM 0.5 MG/2.5ML INH SOL NEB SCH ×3 (06:40→18:30)
[2021-10-12] MEDS: MIDAZOLAM DRIP 50 mg/50mL 50 ML IV SCH ×2 (08:15→17:56)
[2021-10-12] MEDS ORDERED: cefTRIAXone 1GM/50ML D5W 50 ML IV ONE (09:16)
[2021-10-12] MEDS: cefTRIAXone 1GM/50ML D5W 50 ML IV SCH (09:26)
[2021-10-12] MEDS: POTASSIUM CHL 20MEQ/50ML 50 ML IV SCH ×2 (09:30→11:30)
[2021-10-12] MEDS: APIXABAN 5 MG TAB NG SCH ×2 (10:00→21:38)
[2021-10-12] MEDS: AMIODARONE HCL 200 MG TAB NG SCH ×2 (10:00→21:38)
[2021-10-12] MEDS: ASPirin 81 mg TAB NG SCH (10:00)
[2021-10-12] MEDS: NITROGLYCERIN 0.2MG/HR TOPICAL PATCH TD SCH (10:00)
[2021-10-12] MEDS: PANTOPRAZOLE 40 MG/10 ML VIAL INJ IV SCH (10:00)
[2021-10-12] MEDS: FUROSEMIDE 40 MG/4 ML VIAL IV SCH (10:00)
[2021-10-12] MEDS: POTASSIUM EFFERVESENT TAB 25 MEQ GT SCH (10:00)
[2021-10-12] MEDS: CARVEDILOL 3.125 MG TAB PO SCH ×3 (10:00→21:39)
[2021-10-12] MEDS: SOD CHL 0.45% 1,000 ML IV SCH ×2 (12:27→20:14)
[2021-10-12] MEDS: PROPOFOL 100 ML IV SCH (13:45)
[2021-10-12] MEDS: NOREPINEPHRINE 8 MG/250ML KIT 250 ML IV SCH (20:14)
[2021-10-12] MEDS: ATORVASTATIN 20 MG TAB PO SCH (21:39)
[2021-10-13] VITALS (33 sets, daily range): BP systolic 98–138; BP diastolic 46–99
[2021-10-13] MEDS: ACCU-CHEK COMFORT CURVE STRIP VI SCH ×5 (00:23→23:04)
[2021-10-13] MEDS: ALBUTEROL SULF 2.5 MG/0.5ML(0.5%) NEB SOLN NEB SCH ×5 (00:41→23:08)
[2021-10-13] MEDS: IPRATROPIUM BROM 0.5 MG/2.5ML INH SOL NEB SCH ×5 (00:41→23:08)
[2021-10-13] MEDS: DOXYCYCLINE 100MG/250ML 250 ML IV SCH ×2 (02:58→13:49)
[2021-10-13] MEDS: CALCIUM ACETATE 667 MG CAP NG SCH ×3 (02:59→19:03)
[2021-10-13] MEDS: MIDAZOLAM DRIP 50 mg/50mL 50 ML IV SCH ×3 (03:41→23:16)
[2021-10-13] MEDS: SOD CHL 0.45% 1,000 ML IV SCH (05:27)
[2021-10-13] MEDS: InsuLIN REG 1unit/0.01ml Soln (100units/ml) SC SCH ×5 (06:00→23:04)
[2021-10-13] MEDS: cefTRIAXone 1GM/50ML D5W 50 ML IV SCH (09:15)
[2021-10-13] MEDS: POTASSIUM EFFERVESENT TAB 25 MEQ GT SCH (09:16)
[2021-10-13] MEDS: ASPirin 81 mg TAB NG SCH (09:16)
[2021-10-13] MEDS: FUROSEMIDE 40 MG/4 ML VIAL IV SCH (09:17)
[2021-10-13] MEDS: PANTOPRAZOLE 40 MG/10 ML VIAL INJ IV SCH (09:17)
[2021-10-13] MEDS: AMIODARONE HCL 200 MG TAB NG SCH ×2 (09:18→21:22)
[2021-10-13] MEDS: NITROGLYCERIN 0.2MG/HR TOPICAL PATCH TD SCH (10:00)
[2021-10-13] MEDS: APIXABAN 5 MG TAB NG SCH ×2 (11:35→21:23)
[2021-10-13] MEDS ORDERED: MORPHINE SULFATE INJECTION 2 MG/ML SYRG IV PRN (13:30)
[2021-10-13] MEDS: PROPOFOL 100 ML IV SCH (13:45)
[2021-10-13] MEDS: CARVEDILOL 3.125 MG TAB PO SCH ×2 (13:48→21:23)
[2021-10-13 14:37] LABS: Calcium 7.6 mg/dL (8.5-10.1)
[2021-10-13] MEDS: NOREPINEPHRINE 8 MG/250ML KIT 250 ML IV SCH (21:22)
[2021-10-13] MEDS: ATORVASTATIN 20 MG TAB PO SCH (21:23)
[2021-10-14] VITALS (31 sets, daily range): BP systolic 86–169; BP diastolic 60–100
[2021-10-14] MEDS: DOXYCYCLINE 100MG/250ML 250 ML IV SCH ×2 (00:18→14:17)
[2021-10-14 03:33] LABS: Basophils # (auto) 0 10 ^3/uL (0-0.2); Basophils % (auto) 0.3 % (0.0-2.0); Eosinophils # (auto) 0.3 10 ^3/uL (0-0.8); Eosinophils % (auto) 3.1 % (0.0-7.0); Hematocrit 38.2 % (41.0-53.0); Hemoglobin 12.4 g/dL (13.5-17.5); Lymphocytes # (auto) 1.1 10 ^3/uL (0.4-5.4); Lymphocytes % (auto) 13.4 % (10.0-50.0); Mean Corpuscular Hemoglobin 31.7 pg (28.0-32.0); Mean Corpuscular Hgb Conc. 32.5 g/dL (32.0-36.0); Mean Corpuscular Volume 97.6 fL (80.0-100.0); Monocytes # (auto) 0.6 10 ^3/uL (0-1.3); Monocytes % (auto) 7.2 % (0.0-12.0); Neutrophils # (auto) 6.4 10 ^3/uL (1.6-8.6); Nucleated Red Blood Cells % 0.1 %; Red Blood Cells 3.91 10^6/uL (4.5-5.90); White Blood Cell 8.5 10^3/uL (4.4-10.8)
[2021-10-14 03:44] LABS: Calcium 8.1 mg/dL (8.5-10.1)
[2021-10-14] MEDS: InsuLIN REG 1unit/0.01ml Soln (100units/ml) SC SCH ×3 (05:41→18:00)
[2021-10-14] MEDS: CALCIUM ACETATE 667 MG CAP NG SCH ×3 (05:41→18:00)
[2021-10-14] MEDS: ACCU-CHEK COMFORT CURVE STRIP VI SCH ×4 (05:41→23:53)
[2021-10-14] MEDS: ALBUTEROL SULF 2.5 MG/0.5ML(0.5%) NEB SOLN NEB SCH ×3 (09:56→18:19)
[2021-10-14] MEDS: IPRATROPIUM BROM 0.5 MG/2.5ML INH SOL NEB SCH ×3 (09:56→18:19)
[2021-10-14] MEDS: APIXABAN 5 MG TAB NG SCH ×2 (10:00→21:08)
[2021-10-14] MEDS: cefTRIAXone 1GM/50ML D5W 50 ML IV SCH (10:00)
[2021-10-14] MEDS: NITROGLYCERIN 0.2MG/HR TOPICAL PATCH TD SCH (10:00)
[2021-10-14] MEDS: FUROSEMIDE 40 MG/4 ML VIAL IV SCH (10:01)
[2021-10-14] MEDS: POTASSIUM EFFERVESENT TAB 25 MEQ GT SCH (10:01)
[2021-10-14] MEDS: PANTOPRAZOLE 40 MG/10 ML VIAL INJ IV SCH (10:01)
[2021-10-14] MEDS: CARVEDILOL 3.125 MG TAB PO SCH ×2 (10:02→21:09)
[2021-10-14] MEDS: ASPirin 81 mg TAB NG SCH (10:02)
[2021-10-14] MEDS: AMIODARONE HCL 200 MG TAB NG SCH ×2 (10:04→21:08)
[2021-10-14] MEDS: PROPOFOL 100 ML IV SCH (13:45)
[2021-10-14] MEDS ORDERED: hydrALAZINE HCL 20 MG/ML VL IV PRN ×2 (18:45→19:00)
[2021-10-14] MEDS: ATORVASTATIN 20 MG TAB PO SCH (21:09)
[2021-10-15] VITALS (17 sets, daily range): BP systolic 81–134; BP diastolic 56–84
[2021-10-15] MEDS: IPRATROPIUM BROM 0.5 MG/2.5ML INH SOL NEB SCH ×4 (00:39→18:49)
[2021-10-15] MEDS: ALBUTEROL SULF 2.5 MG/0.5ML(0.5%) NEB SOLN NEB SCH ×4 (00:39→18:49)
[2021-10-15] MEDS: DOXYCYCLINE 100MG/250ML 250 ML IV SCH ×2 (01:30→18:52)
[2021-10-15 02:31] LABS: Basophils # (auto) 0 10 ^3/uL (0-0.2); Basophils % (auto) 0.4 % (0.0-2.0); Eosinophils # (auto) 0.2 10 ^3/uL (0-0.8); Eosinophils % (auto) 1.8 % (0.0-7.0); Hematocrit 41.1 % (41.0-53.0); Hemoglobin 13.1 g/dL (13.5-17.5); Lymphocytes % (auto) 9.3 % (10.0-50.0); Mean Corpuscular Hemoglobin 31.1 pg (28.0-32.0); Mean Corpuscular Volume 97.3 fL (80.0-100.0); Monocytes # (auto) 0.7 10 ^3/uL (0-1.3); Monocytes % (auto) 6.1 % (0.0-12.0); Neutrophils # (auto) 9.1 10 ^3/uL (1.6-8.6); Neutrophils % (auto) 82.4 % (37.0-80.0); Red Blood Cells 4.22 10^6/uL (4.5-5.90); Red Cell Distribution Width 14.7 % (11.8-14.3)
[2021-10-15 02:58] LABS: BUN/Creatinine Ratio 25.9; Calcium 8.2 mg/dL (8.5-10.1); Potassium 3.5 mmol/L (3.5-5.1)
[2021-10-15] MEDS: CALCIUM ACETATE 667 MG CAP NG SCH ×3 (04:19→18:22)
[2021-10-15] MEDS: ACCU-CHEK COMFORT CURVE STRIP VI SCH ×3 (05:14→18:18)
[2021-10-15] MEDS: InsuLIN REG 1unit/0.01ml Soln (100units/ml) SC SCH ×4 (05:14→18:00)
[2021-10-15] MEDS: PANTOPRAZOLE 40 MG/10 ML VIAL INJ IV SCH (09:59)
[2021-10-15] MEDS: APIXABAN 5 MG TAB NG SCH ×2 (10:00→21:14)
[2021-10-15] MEDS: CARVEDILOL 3.125 MG TAB PO SCH ×2 (10:00→21:56)
[2021-10-15] MEDS: FUROSEMIDE 40 MG/4 ML VIAL IV SCH (10:00)
[2021-10-15] MEDS: NITROGLYCERIN 0.2MG/HR TOPICAL PATCH TD SCH (10:00)
[2021-10-15] MEDS: ASPirin 81 mg TAB NG SCH (10:01)
[2021-10-15] MEDS: POTASSIUM EFFERVESENT TAB 25 MEQ GT SCH (10:01)
[2021-10-15] MEDS: cefTRIAXone 1GM/50ML D5W 50 ML IV SCH (10:02)
[2021-10-15] MEDS: AMIODARONE HCL 200 MG TAB NG SCH ×2 (10:02→21:14)
[2021-10-15] MEDS: MIDODRINE HCL 10 MG TAB PO SCH ×2 (12:51→18:19)
[2021-10-15] MEDS: PROPOFOL 100 ML IV SCH (13:45)
[2021-10-15] MEDS: ATORVASTATIN 20 MG TAB PO SCH (21:14)
[2021-10-16] VITALS (16 sets, daily range): BP systolic 91–137; BP diastolic 56–86
[2021-10-16] MEDS: DOXYCYCLINE 100MG/250ML 250 ML IV SCH ×2 (01:10→13:48)
[2021-10-16] MEDS: IPRATROPIUM BROM 0.5 MG/2.5ML INH SOL NEB SCH ×4 (01:38→18:32)
[2021-10-16] MEDS: ALBUTEROL SULF 2.5 MG/0.5ML(0.5%) NEB SOLN NEB SCH ×4 (01:38→18:32)
[2021-10-16] MEDS: CALCIUM ACETATE 667 MG CAP NG SCH ×3 (03:45→19:27)
[2021-10-16 04:25] LABS: Basophils # (auto) 0 10 ^3/uL (0-0.2); Basophils % (auto) 0.4 % (0.0-2.0); Eosinophils # (auto) 0.1 10 ^3/uL (0-0.8); Eosinophils % (auto) 1.1 % (0.0-7.0); Hematocrit 39.7 % (41.0-53.0); Hemoglobin 13.2 g/dL (13.5-17.5); Lymphocytes # (auto) 0.9 10 ^3/uL (0.4-5.4); Lymphocytes % (auto) 8.3 % (10.0-50.0); Mean Corpuscular Hemoglobin 32.3 pg (28.0-32.0); Mean Corpuscular Hgb Conc. 33.3 g/dL (32.0-36.0); Mean Corpuscular Volume 96.9 fL (80.0-100.0); Monocytes # (auto) 0.7 10 ^3/uL (0-1.3); Monocytes % (auto) 5.7 % (0.0-12.0); Neutrophils # (auto) 9.6 10 ^3/uL (1.6-8.6); Neutrophils % (auto) 84.5 % (37.0-80.0); Nucleated Red Blood Cells % 0.1 %; Red Cell Distribution Width 14.6 % (11.8-14.3); White Blood Cell 11.4 10^3/uL (4.4-10.8)
[2021-10-16 04:35] LABS: Calcium 8.2 mg/dL (8.5-10.1)
[2021-10-16 04:38] LABS: BUN/Creatinine Ratio 29.1
[2021-10-16] MEDS: MIDODRINE HCL 10 MG TAB PO SCH ×3 (05:45→19:28)
[2021-10-16] MEDS: ACCU-CHEK COMFORT CURVE STRIP VI SCH ×4 (06:00→17:30)
[2021-10-16] MEDS: InsuLIN REG 1unit/0.01ml Soln (100units/ml) SC SCH ×4 (06:00→17:29)
[2021-10-16] MEDS: NITROGLYCERIN 0.2MG/HR TOPICAL PATCH TD SCH (10:00)
[2021-10-16] MEDS: ASPirin 81 mg TAB NG SCH (10:50)
[2021-10-16] MEDS: POTASSIUM EFFERVESENT TAB 25 MEQ GT SCH (10:50)
[2021-10-16] MEDS: FUROSEMIDE 40 MG/4 ML VIAL IV SCH (10:51)
[2021-10-16] MEDS: PANTOPRAZOLE 40 MG/10 ML VIAL INJ IV SCH (10:51)
[2021-10-16] MEDS: AMIODARONE HCL 200 MG TAB NG SCH ×2 (10:51→22:38)
[2021-10-16] MEDS: APIXABAN 5 MG TAB NG SCH ×2 (10:51→22:39)
[2021-10-16] MEDS: cefTRIAXone 1GM/50ML D5W 50 ML IV SCH (10:53)
[2021-10-16] MEDS: PROPOFOL 100 ML IV SCH (13:45)
[2021-10-16] MEDS: CARVEDILOL 3.125 MG TAB PO SCH ×2 (19:27→22:40)
[2021-10-16] MEDS: ATORVASTATIN 20 MG TAB PO SCH (22:40)
[2021-10-17] VITALS (14 sets, daily range): BP systolic 116–163; BP diastolic 20–88
[2021-10-17] MEDS: ACCU-CHEK COMFORT CURVE STRIP VI SCH ×4 (00:25→18:59)
[2021-10-17] MEDS: DOXYCYCLINE 100MG/250ML 250 ML IV SCH ×2 (01:34→18:54)
[2021-10-17] MEDS: IPRATROPIUM BROM 0.5 MG/2.5ML INH SOL NEB SCH ×4 (02:27→18:00)
[2021-10-17] MEDS: ALBUTEROL SULF 2.5 MG/0.5ML(0.5%) NEB SOLN NEB SCH ×4 (02:27→18:00)
[2021-10-17 03:39] LABS: Basophils # (auto) 0.1 10 ^3/uL (0-0.2); Basophils % (auto) 0.4 % (0.0-2.0); Eosinophils # (auto) 0.1 10 ^3/uL (0-0.8); Eosinophils % (auto) 0.9 % (0.0-7.0); Hematocrit 42.5 % (41.0-53.0); Hemoglobin 13.9 g/dL (13.5-17.5); Lymphocytes # (auto) 0.9 10 ^3/uL (0.4-5.4); Lymphocytes % (auto) 6.8 % (10.0-50.0); Mean Corpuscular Hemoglobin 31.7 pg (28.0-32.0); Mean Corpuscular Hgb Conc. 32.7 g/dL (32.0-36.0); Mean Corpuscular Volume 96.8 fL (80.0-100.0); Monocytes # (auto) 0.8 10 ^3/uL (0-1.3); Neutrophils % (auto) 85.9 % (37.0-80.0); Red Blood Cells 4.39 10^6/uL (4.5-5.90); Red Cell Distribution Width 15.1 % (11.8-14.3)
[2021-10-17 03:54] LABS: BUN/Creatinine Ratio 25.9; Calcium 8.5 mg/dL (8.5-10.1); Potassium 3.5 mmol/L (3.5-5.1)
[2021-10-17] MEDS: CALCIUM ACETATE 667 MG CAP NG SCH ×3 (04:22→18:58)
[2021-10-17] MEDS: InsuLIN REG 1unit/0.01ml Soln (100units/ml) SC SCH ×4 (06:00→18:00)
[2021-10-17] MEDS: MIDODRINE HCL 10 MG TAB PO SCH ×3 (06:39→18:57)
[2021-10-17] MEDS: cefTRIAXone 1GM/50ML D5W 50 ML IV SCH (08:50)
[2021-10-17] MEDS: FUROSEMIDE 40 MG/4 ML VIAL IV SCH (08:52)
[2021-10-17] MEDS: POTASSIUM EFFERVESENT TAB 25 MEQ GT SCH (08:52)
[2021-10-17] MEDS: CARVEDILOL 3.125 MG TAB PO SCH ×2 (08:53→21:45)
[2021-10-17] MEDS: ASPirin 81 mg TAB NG SCH (08:55)
[2021-10-17] MEDS: AMIODARONE HCL 200 MG TAB NG SCH ×2 (08:56→21:38)
[2021-10-17] MEDS: NITROGLYCERIN 0.2MG/HR TOPICAL PATCH TD SCH (10:00)
[2021-10-17] MEDS: PROPOFOL 100 ML IV SCH (13:45)
[2021-10-17] MEDS: PANTOPRAZOLE 40 MG/10 ML VIAL INJ IV SCH (18:50)
[2021-10-17] MEDS: APIXABAN 5 MG TAB NG SCH ×2 (18:50→21:39)
[2021-10-17] MEDS: D5W 5% 1,000 ML IV SCH ×2 (19:00→20:45)
[2021-10-17] MEDS: ATORVASTATIN 20 MG TAB PO SCH (21:46)
[2021-10-18] VITALS (24 sets, daily range): BP systolic 104–165; BP diastolic 68–95
[2021-10-18] MEDS: DOXYCYCLINE 100MG/250ML 250 ML IV SCH ×2 (01:30→13:09)
[2021-10-18] MEDS: D5W 5% 1,000 ML IV SCH ×2 (03:30→09:52)
[2021-10-18] MEDS: CALCIUM ACETATE 667 MG CAP NG SCH ×3 (04:15→18:26)
[2021-10-18 04:56] LABS: Calcium 8.1 mg/dL (8.5-10.1)
[2021-10-18 04:57] LABS: BUN/Creatinine Ratio 26.1
[2021-10-18 05:47] LABS: Potassium 2.9 mmol/L (3.5-5.1)
[2021-10-18] MEDS: InsuLIN REG 1unit/0.01ml Soln (100units/ml) SC SCH ×5 (06:00→20:00)
[2021-10-18] MEDS: ACCU-CHEK COMFORT CURVE STRIP VI SCH ×5 (06:00→20:00)
[2021-10-18] MEDS: MIDODRINE HCL 10 MG TAB PO SCH ×3 (06:00→18:26)
[2021-10-18] MEDS: IPRATROPIUM BROM 0.5 MG/2.5ML INH SOL NEB SCH ×4 (06:05→18:57)
[2021-10-18] MEDS: ALBUTEROL SULF 2.5 MG/0.5ML(0.5%) NEB SOLN NEB SCH ×4 (06:05→18:56)
[2021-10-18] MEDS: POTASSIUM EFFERVESENT TAB 25 MEQ GT SCH (06:36)
[2021-10-18] MEDS: POTASSIUM CHL 20MEQ/50ML 50 ML IV SCH ×3 (08:01→10:30)
[2021-10-18] MEDS: cefTRIAXone 1GM/50ML D5W 50 ML IV SCH (09:00)
[2021-10-18] MEDS ORDERED: DEXTROSE (50%) 50ML SYRG IV PRN (09:45)
[2021-10-18] MEDS: PANTOPRAZOLE 40 MG/10 ML VIAL INJ IV SCH (09:53)
[2021-10-18] MEDS: AMIODARONE HCL 200 MG TAB NG SCH ×2 (09:54→22:00)
[2021-10-18] MEDS: APIXABAN 5 MG TAB NG SCH ×2 (09:54→22:00)
[2021-10-18] MEDS: ASPirin 81 mg TAB NG SCH (09:54)
[2021-10-18] MEDS: NITROGLYCERIN 0.2MG/HR TOPICAL PATCH TD SCH (10:00)
[2021-10-18] MEDS: CARVEDILOL 3.125 MG TAB PO SCH ×2 (10:15→22:00)
[2021-10-18] MEDS: FREE WATER GT SCH ×3 (12:00→18:26)
[2021-10-18] MEDS: PROPOFOL 100 ML IV SCH (13:09)
[2021-10-18 18:01] LABS: Basophils # (auto) 0.1 10 ^3/uL (0-0.2); Basophils % (auto) 0.5 % (0.0-2.0); Eosinophils # (auto) 0.1 10 ^3/uL (0-0.8); Eosinophils % (auto) 0.8 % (0.0-7.0); Hematocrit 43.4 % (41.0-53.0); Hemoglobin 14.1 g/dL (13.5-17.5); Lymphocytes # (auto) 1.2 10 ^3/uL (0.4-5.4); Lymphocytes % (auto) 8.9 % (10.0-50.0); Mean Corpuscular Hemoglobin 31.5 pg (28.0-32.0); Mean Corpuscular Hgb Conc. 32.4 g/dL (32.0-36.0); Mean Corpuscular Volume 97.1 fL (80.0-100.0); Monocytes # (auto) 0.6 10 ^3/uL (0-1.3); Monocytes % (auto) 4.6 % (0.0-12.0); Neutrophils # (auto) 11.6 10 ^3/uL (1.6-8.6); Neutrophils % (auto) 85.2 % (37.0-80.0); Red Blood Cells 4.47 10^6/uL (4.5-5.90); White Blood Cell 13.6 10^3/uL (4.4-10.8)
[2021-10-18 18:12] LABS: BUN/Creatinine Ratio 24.3; Calcium 8.4 mg/dL (8.5-10.1); Potassium 4.2 mmol/L (3.5-5.1)
[2021-10-18] MEDS: ATORVASTATIN 20 MG TAB PO SCH (22:00)
[2021-10-19] VITALS (13 sets, daily range): BP systolic 98–164; BP diastolic 58–97
[2021-10-19] MEDS: IPRATROPIUM BROM 0.5 MG/2.5ML INH SOL NEB SCH ×2 (01:13→20:27)
[2021-10-19] MEDS: ALBUTEROL SULF 2.5 MG/0.5ML(0.5%) NEB SOLN NEB SCH ×2 (01:13→20:27)
[2021-10-19] MEDS: DOXYCYCLINE 100MG/250ML 250 ML IV SCH (01:30)
[2021-10-19] MEDS: FREE WATER GT SCH ×6 (03:00→12:08)
[2021-10-19] MEDS: ACCU-CHEK COMFORT CURVE STRIP VI SCH ×6 (04:00→20:00)
[2021-10-19] MEDS: CALCIUM ACETATE 667 MG CAP NG SCH ×2 (04:00→09:01)
[2021-10-19] MEDS: InsuLIN REG 1unit/0.01ml Soln (100units/ml) SC SCH ×6 (04:00→20:00)
[2021-10-19 04:54] LABS: Basophils # (auto) 0.1 10 ^3/uL (0-0.2); Basophils % (auto) 0.5 % (0.0-2.0); Eosinophils # (auto) 0.2 10 ^3/uL (0-0.8); Eosinophils % (auto) 1.6 % (0.0-7.0); Hematocrit 41.4 % (41.0-53.0); Hemoglobin 13.7 g/dL (13.5-17.5); Lymphocytes # (auto) 1.4 10 ^3/uL (0.4-5.4); Mean Corpuscular Hemoglobin 31.9 pg (28.0-32.0); Mean Corpuscular Hgb Conc. 33.1 g/dL (32.0-36.0); Mean Corpuscular Volume 96.4 fL (80.0-100.0); Monocytes # (auto) 0.8 10 ^3/uL (0-1.3); Neutrophils # (auto) 10.5 10 ^3/uL (1.6-8.6); Neutrophils % (auto) 80.9 % (37.0-80.0); Red Blood Cells 4.29 10^6/uL (4.5-5.90); Red Cell Distribution Width 14.7 % (11.8-14.3)
[2021-10-19 05:06] LABS: BUN/Creatinine Ratio 24.5; Calcium 8.3 mg/dL (8.5-10.1); Potassium 3.5 mmol/L (3.5-5.1)
[2021-10-19] MEDS: D5W 5% 1,000 ML IV SCH ×2 (05:59→12:06)
[2021-10-19] MEDS: MIDODRINE HCL 10 MG TAB PO SCH ×2 (06:02→12:04)
[2021-10-19] MEDS: POTASSIUM EFFERVESENT TAB 25 MEQ GT SCH (09:01)
[2021-10-19] MEDS: PANTOPRAZOLE 40 MG/10 ML VIAL INJ IV SCH (09:01)
[2021-10-19] MEDS: NITROGLYCERIN 0.2MG/HR TOPICAL PATCH TD SCH (09:01)
[2021-10-19] MEDS: cefTRIAXone 1GM/50ML D5W 50 ML IV SCH (09:02)
[2021-10-19] MEDS: AMIODARONE HCL 200 MG TAB NG SCH (09:02)
[2021-10-19] MEDS: ASPirin 81 mg TAB NG SCH (09:02)
[2021-10-19] MEDS: APIXABAN 5 MG TAB NG SCH (09:03)
[2021-10-19] MEDS: CARVEDILOL 3.125 MG TAB PO SCH ×2 (10:00→21:15)
[2021-10-19] MEDS: PROPOFOL 100 ML IV SCH (12:07)
[2021-10-19] MEDS: amLODIPine BESYLATE 5 MG TAB PO SCH (16:56)
[2021-10-19] MEDS: DOXYCYCLINE 100 MG TAB/CAP PO SCH (21:15)
[2021-10-19] MEDS: ATORVASTATIN 20 MG TAB PO SCH (21:16)
[2021-10-19] MEDS: AMIODARONE HCL 200 MG TAB PO SCH (21:16)
[2021-10-19] MEDS: APIXABAN 5 MG TAB PO SCH (21:17)
[2021-10-20] MEDS: D5W 5% 1,000 ML IV SCH ×2 (01:45→03:54)
[2021-10-20] MEDS: ACCU-CHEK COMFORT CURVE STRIP VI SCH ×5 (04:00→16:00)
[2021-10-20] MEDS: InsuLIN REG 1unit/0.01ml Soln (100units/ml) SC SCH ×6 (04:00→20:00)
[2021-10-20 05:00] VITALS: BP 144/78
[2021-10-20] MEDS: ALBUTEROL SULF 2.5 MG/0.5ML(0.5%) NEB SOLN NEB SCH ×4 (06:17→18:13)
[2021-10-20] MEDS: IPRATROPIUM BROM 0.5 MG/2.5ML INH SOL NEB SCH ×4 (06:17→18:13)
[2021-10-20 09:00] VITALS: BP 128/80
[2021-10-20] MEDS: AMIODARONE HCL 200 MG TAB PO SCH (09:51)
[2021-10-20] MEDS: CARVEDILOL 3.125 MG TAB PO SCH (09:54)
[2021-10-20] MEDS: ASPirin 81 mg TAB PO SCH (09:54)
[2021-10-20] MEDS: PANTOPRAZOLE 40 MG TAB PO SCH (09:55)
[2021-10-20] MEDS: amLODIPine BESYLATE 5 MG TAB PO SCH (09:55)
[2021-10-20] MEDS: NITROGLYCERIN 0.2MG/HR TOPICAL PATCH TD SCH (09:55)
[2021-10-20] MEDS: DOXYCYCLINE 100 MG TAB/CAP PO SCH (09:55)
[2021-10-20] MEDS: APIXABAN 5 MG TAB PO SCH (09:55)
[2021-10-20 13:00] VITALS: BP 119/70
[2021-10-20 13:24] LABS: Basophils # (auto) 0 10 ^3/uL (0-0.2); Basophils % (auto) 0.3 % (0.0-2.0); Eosinophils # (auto) 0.1 10 ^3/uL (0-0.8); Eosinophils % (auto) 0.9 % (0.0-7.0); Hematocrit 46.5 % (41.0-53.0); Hemoglobin 15.6 g/dL (13.5-17.5); Lymphocytes # (auto) 1.4 10 ^3/uL (0.4-5.4); Lymphocytes % (auto) 9.3 % (10.0-50.0); Mean Corpuscular Hemoglobin 31.9 pg (28.0-32.0); Mean Corpuscular Hgb Conc. 33.5 g/dL (32.0-36.0); Mean Corpuscular Volume 95.4 fL (80.0-100.0); Monocytes # (auto) 0.8 10 ^3/uL (0-1.3); Monocytes % (auto) 5.6 % (0.0-12.0); Neutrophils # (auto) 12.2 10 ^3/uL (1.6-8.6); Neutrophils % (auto) 83.9 % (37.0-80.0); Red Blood Cells 4.88 10^6/uL (4.5-5.90); Red Cell Distribution Width 14.6 % (11.8-14.3); White Blood Cell 14.6 10^3/uL (4.4-10.8)
[2021-10-20 13:34] LABS: BUN/Creatinine Ratio 20.9; Calcium 8.4 mg/dL (8.5-10.1); Potassium 3.5 mmol/L (3.5-5.1)
[2021-10-20 22:00] VITALS: BP 114/79
[2021-10-21] MEDS: D5W 5% 1,000 ML IV SCH ×4 (00:20→17:33)
[2021-10-21] MEDS: ACCU-CHEK COMFORT CURVE STRIP VI SCH ×7 (00:20→20:59)
[2021-10-21] MEDS: AMIODARONE HCL 200 MG TAB PO SCH ×3 (00:21→21:59)
[2021-10-21] MEDS: CARVEDILOL 3.125 MG TAB PO SCH ×3 (00:22→22:00)
[2021-10-21] MEDS: APIXABAN 5 MG TAB PO SCH ×3 (00:22→22:00)
[2021-10-21] MEDS: ATORVASTATIN 20 MG TAB PO SCH ×2 (00:23→22:00)
[2021-10-21] MEDS: DOXYCYCLINE 100 MG TAB/CAP PO SCH ×3 (00:23→22:00)
[2021-10-21] MEDS: IPRATROPIUM BROM 0.5 MG/2.5ML INH SOL NEB SCH ×4 (01:14→19:11)
[2021-10-21] MEDS: ALBUTEROL SULF 2.5 MG/0.5ML(0.5%) NEB SOLN NEB SCH ×4 (01:14→19:11)
[2021-10-21] MEDS: InsuLIN REG 1unit/0.01ml Soln (100units/ml) SC SCH ×6 (04:00→20:00)
[2021-10-21 05:00] VITALS: BP 138/69
[2021-10-21] MEDS: amLODIPine BESYLATE 5 MG TAB PO SCH (08:48)
[2021-10-21] MEDS: ASPirin 81 mg TAB PO SCH (08:48)
[2021-10-21] MEDS: NITROGLYCERIN 0.2MG/HR TOPICAL PATCH TD SCH (08:48)
[2021-10-21] MEDS: PANTOPRAZOLE 40 MG TAB PO SCH (08:50)
[2021-10-21 09:04] VITALS: BP 147/88
[2021-10-21 16:31] VITALS: BP 125/89
[2021-10-21 18:32] VITALS: BP 129/78
[2021-10-21] MEDS ORDERED: MORPHINE SULFATE INJECTION 2 MG/ML SYRG ONE (20:12)
[2021-10-22] MEDS: ACCU-CHEK COMFORT CURVE STRIP VI SCH ×4 (00:11→12:00)
[2021-10-22] MEDS: IPRATROPIUM BROM 0.5 MG/2.5ML INH SOL NEB SCH ×3 (00:22→11:24)
[2021-10-22] MEDS: ALBUTEROL SULF 2.5 MG/0.5ML(0.5%) NEB SOLN NEB SCH ×3 (00:22→11:24)
[2021-10-22] MEDS: D5W 5% 1,000 ML IV SCH ×2 (03:45→13:06)
[2021-10-22] MEDS: InsuLIN REG 1unit/0.01ml Soln (100units/ml) SC SCH ×4 (04:43→12:00)
[2021-10-22 09:00] VITALS: BP 143/80
[2021-10-22] MEDS: DOXYCYCLINE 100 MG TAB/CAP PO SCH (09:35)
[2021-10-22] MEDS: ASPirin 81 mg TAB PO SCH (09:36)
[2021-10-22] MEDS: AMIODARONE HCL 200 MG TAB PO SCH (09:36)
[2021-10-22] MEDS: CARVEDILOL 3.125 MG TAB PO SCH (09:36)
[2021-10-22] MEDS: amLODIPine BESYLATE 5 MG TAB PO SCH (09:36)
[2021-10-22] MEDS: PANTOPRAZOLE 40 MG TAB PO SCH (09:37)
[2021-10-22] MEDS: NITROGLYCERIN 0.2MG/HR TOPICAL PATCH TD SCH (09:37)
[2021-10-22] MEDS: APIXABAN 5 MG TAB PO SCH (09:37)
[2021-10-22 13:00] VITALS: BP 127/73
[2021-10-22] MEDS ORDERED: FUROSEMIDE 20 MG/2 ML VIAL IV ONE (13:45)
[2021-10-22 17:00] VITALS: BP 136/71
[2021-10-22] MEDS ORDERED: Glucerna Carbsteady SHAKE Vanilla 8oz PO SCH (18:00)
== END 2021-10-22 20:17 | DRG 207 ==
LOC: EDBD 12:58 → EDUNIT# 12:58 → ER 12:58 → TELE 18:37 → CATH ICU 10-10 10:39 → TELE-WESTW 10-19 09:10
PROVIDERS: ADMIT Internal Medicine; ATTEND Hospitalist
PROC: 5A1955Z Respiratory Ventilation, Greater than 96 Consecutive Hours (ICD-10-PCS; principal; 2021-10-07)
PROC: 0BH17EZ Insertion of Endotracheal Airway into Trachea, Via Natural or Artificial Opening (ICD-10-PCS; 2021-10-07)
PROC: 02HV33Z Insertion of Infusion Device into Superior Vena Cava, Percutaneous Approach (ICD-10-PCS; 2021-10-07)
PROC: 4A143B0 Monitoring of Venous Pressure, Central, Percutaneous Approach (ICD-10-PCS; 2021-10-07)
PROC: B548ZZA Ultrasonography of Superior Vena Cava, Guidance (ICD-10-PCS; 2021-10-07)
DX: J96.21 Acute and chronic respiratory failure with hypoxia (principal); I50.43 Acute on chronic combined systolic (congestive) and diastolic (congestive) heart failure; G92.8 Other toxic encephalopathy; N17.0 Acute kidney failure with tubular necrosis; A41.9 Sepsis, unspecified organism; J15.9 Unspecified bacterial pneumonia; I13.0 Hypertensive heart and chronic kidney disease with heart failure and stage 1 through stage 4 chronic kidney disease, or unspecified chronic kidney disease; E87.0 Hyperosmolality and hypernatremia; E87.1 Hypo-osmolality and hyponatremia; G93.1 Anoxic brain damage, not elsewhere classified; J44.0 Chronic obstructive pulmonary disease with (acute) lower respiratory infection; Z99.11 Dependence on respirator [ventilator] status; N39.0 Urinary tract infection, site not specified; N40.0 Benign prostatic hyperplasia without lower urinary tract symptoms; N18.30 Chronic kidney disease, stage 3 unspecified; I48.0 Paroxysmal atrial fibrillation; E87.6 Hypokalemia; E88.09 Other disorders of plasma-protein metabolism, not elsewhere classified; I25.5 Ischemic cardiomyopathy; I95.9 Hypotension, unspecified; R79.89 Other specified abnormal findings of blood chemistry; Z60.2 Problems related to living alone; E11.22 Type 2 diabetes mellitus with diabetic chronic kidney disease; E66.01 Morbid (severe) obesity due to excess calories; E78.5 Hyperlipidemia, unspecified; E11.65 Type 2 diabetes mellitus with hyperglycemia; D72.829 Elevated white blood cell count, unspecified; E83.39 Other disorders of phosphorus metabolism; Z20.822 Contact with and (suspected) exposure to COVID-19; I25.10 Atherosclerotic heart disease of native coronary artery without angina pectoris; Z79.01 Long term (current) use of anticoagulants; Z79.899 Other long term (current) drug therapy; Z82.49 Family history of ischemic heart disease and other diseases of the circulatory system; Z85.46 Personal history of malignant neoplasm of prostate; Z95.0 Presence of cardiac pacemaker; Z99.81 Dependence on supplemental oxygen; Z75.1 Person awaiting admission to adequate facility elsewhere; Z68.30 Body mass index [BMI] 30.0-30.9, adult
CPT/HCPCS: 31500; 36415; 36556; 36600; 70450; 71045; 76775; 76937; 80048; 80053; 81001; 82306; 82550; 82728; 82805; 82962; 83036; 83605; 83735; 83880; 83970; 84100; 84484; 85025; 85379; 85610; 85730; 86141; 86803; 87040; 87070; 87081; 87205; 87340; 87426; 87804; 92610; 93005; 93970; 94002; 94003; 94640; 95819; 96365; 96375; 97163; 99291; C9113; G0378; G9035; J0696; J1815; J2250; J2704; J3490; J7060